=== PATIENT | male | born 1975 | race Two or more races ===

== ENCOUNTER → 2021-06-01 09:08 | Outpatient (CLI) | payer OTHER ==
[~2021-06-01 09:08] MED LIST: IRBESARTAN300 MG PO; TOPROL XL25 M1 PO
== END | disposition home or self-care (01) ==
LOC: NUCLEAR 09:00
PROVIDERS: ATTEND Specialist
DX: I11.9 Hypertensive heart disease without heart failure (principal)

== ENCOUNTER 2021-06-03 13:03 | Emergency (ER) | payer OTHER ==
[~2021-06-03] VITALS: Ht 172.7 cm; Wt 176.9 kg
[2021-06-03] MEDS ORDERED: IRBESARTAN300 MG PO (13:22)
[2021-06-03] MEDS ORDERED: TOPROL XL25 M1 PO (13:23)
== END 2021-06-04 01:23 | disposition home or self-care (01) ==
LOC: ER 13:03
DX: I10 Essential (primary) hypertension (principal); Z88.6 Allergy status to analgesic agent